=== PATIENT | female | born 1990 | race Hispanic/Latino ===

== ENCOUNTER 2017-07-05 20:02 | Inpatient (IN) | payer OTHER ==
[2017-07-05 20:53] VITALS: BP 101/66; TEMP 98.7; BMI 23.6
[2017-07-05] MEDS ORDERED: Lidocaine 1% (PF) 30 ML VIAL SC PRN (21:01)
[2017-07-05] MEDS ORDERED: Ondansetron HCl/PF 4 MG/2 ML Vial IVP PRN (21:01)
[2017-07-05] MEDS ORDERED: Lactated Ringer's 1,000 ML IV SCH ×2 (21:15)
[2017-07-05] MEDS ORDERED: Zolpidem Tartrate 5 MG TAB PO PRN (22:33)
[2017-07-05] MEDS: Misoprostol 100 MCG TAB VAG SCH (22:35)
[2017-07-06] MEDS: Misoprostol 100 MCG TAB VAG SCH (02:40)
--- NOTE | 2017-07-06 08:14 | DIS ---
DELIVERY AND DISCHARGE NOTE ADMITTING DIAGNOSIS: Intrauterine demise at 15 weeks. DISCHARGE DIAGNOSIS: Intrauterine demise at 15 weeks. PROCEDURE: Induction of labor with delivery of 15-week fetus. CONSULTATIONS: None. HOSPITAL COURSE: The patient is a 27-year-old female who presented to Labor and Delivery last night with a confirmed IUFD at 15 weeks and was requesting medical management for delivery. She was admitt ed and placed on Cytotec 400 mcg q.4h. vaginally until delivery which occurred at 0335 on 07/06/2017. The fetus appeared male, was 15 weeks and 6 days and weighed 9 grams. The placenta delivered spont aneously over the next hour. Upon my evaluation, the patient reports that she is feeling better, cabrera t her bleeding has slowed down and is without subjective fever. At the completion of the procedure, the patient was stable and in her own room. PHYSICAL EXAMINATION: VITAL SIGNS: This morning; blood pressure 102/55, heart rate of 74, respiratory rate of 18. GENERAL: She appears to be in no acute distress. She is alert and oriented, cooperative and pleasan t to interact with. HEENT: Head is normocephalic, atraumatic. ABDOMEN: Soft. Blood type is A positive with a negative antibody screen, hemoglobin prior to delivery was 13.3, wayne tocrit 38.3, platelets of 239,000. No repeat labs were drawn. Her beta quant was 1150. DISCHARGE INSTRUCTIONS: The patient is being discharged to home. She has desires to take the fetus home for home burial which to my understanding is not a problem. We will confirm this with hospital administration. The patient is being discharged with [id number] ibuprofen to be taken as neede d and has instructions to follow up with her primary OB or doctor of choice in the next 2 weeks.
== END 2017-07-06 08:40 | disposition home or self-care (01) | DRG 770 ==
LOC: L&D 20:02
PROVIDERS: ADMIT Obstetrics & Gynecology; ATTEND Obstetrics & Gynecology
PROC: 10D17Z9 Manual Extraction of Products of Conception, Retained, Via Natural or Artificial Opening (ICD-10-PCS; principal; 2017-07-05)
PROC: 3E0P7VZ Introduction of Hormone into Female Reproductive, Via Natural or Artificial Opening (ICD-10-PCS; 2017-07-05)
DX: O02.1 Missed abortion (principal); Z3A.15 15 weeks gestation of pregnancy
CPT/HCPCS: 36415; 84702; 85025; 86850; 86900; 86901; 99284; J0595

== ENCOUNTER 2018-01-24 06:56 | Inpatient (IN) | payer OTHER ==
[2018-01-24 07:27] VITALS: BMI 26.8
[2018-01-24] MEDS ORDERED: Meperidine HCl/PF 25 MG/ML VIAL IM/IV PRN (08:34)
[2018-01-24] MEDS ORDERED: Promethazine HCl 25 MG/ML VIAL IM PRN (08:34)
[2018-01-24] MEDS ORDERED: Acetaminophen 500 MG TAB PO PRN (08:34)
[2018-01-24] MEDS ORDERED: Ondansetron HCl/PF 4 MG/2 ML Vial IVP PRN (08:34)
[2018-01-24] MEDS ORDERED: Butorphanol Tartrate 1 MG/ML VIAL SLOW IVP PRN (08:34)
--- NOTE | 2018-01-24 09:12 | ULT ---
OBSTETRIC SONOGRAM LIMITED: History demise. FINDINGS: Sonographic evaluation of the uterus shows fetus within the endometrial cavity. No heart tones are detected. IMPRESSION: Intrauterine demise. POS: YANIQUE
[2018-01-24] MEDS: Lactated Ringer's 1,000 ML IV SCH ×6 (09:30→19:25)
[2018-01-24] MEDS: Misoprostol 100 MCG TAB VAG SCH ×4 (10:15→22:54)
[2018-01-24 10:18] LABS: Hemoglobin 14.5 g/dL (12.0-16.0); Mean Corpuscular HGB CONC 33.5 g/dL (32.0-36.0); Mean Corpuscular Hemoglobin 29.8 pg (27.0-31.0); Mean Corpuscular Volume 88.8 fl (81.0-99.0); Mean Platelet Volume 8.5 fL (7.4-10.4); Platelet Count 219 thou/uL (130-400); RBC Distribution Width 12.1 % (11.5-14.5); Red Blood Cell (RBC) Count 4.86 mill/uL (4.20-5.40); White Blood Cell (WBC) Count 7.9 thou/uL (4.8-10.8)
[2018-01-24 10:56] LABS: Syphilis Antibody Nonreactive (Nonreactive); Syphilis Antibody Index 0.04 S/CO (<1.00 Non-Reactive)
[2018-01-24 10:57] LABS: HBSAg Index 0.25 S/CO (0-0.99); Hep B Surf Ag Non-Reactive S/CO (NonReactive)
[2018-01-24 12:56] VITALS: TEMP 98.7
[2018-01-24 18:17] LABS: Hemoglobin 11.4 g/dL (12.0-16.0); Mean Corpuscular HGB CONC 33.4 g/dL (32.0-36.0); Mean Corpuscular Hemoglobin 30.1 pg (27.0-31.0); Mean Corpuscular Volume 90.1 fl (81.0-99.0); Mean Platelet Volume 8.1 fL (7.4-10.4); Platelet Count 202 thou/uL (130-400); RBC Distribution Width 11.8 % (11.5-14.5); Red Blood Cell (RBC) Count 3.77 mill/uL (4.20-5.40); White Blood Cell (WBC) Count 11.2 thou/uL (4.8-10.8)
[2018-01-24 18:22] LABS: Prothrombin Time 13.1 SEC (12.0-14.7)
[2018-01-24 18:36] LABS: Glucose 119 mg/dL (70-105)
[2018-01-24 18:51] VITALS: BP 106/62
--- NOTE | 2018-01-24 21:13 | PRG ---
DATE OF SERVICE: 01/24/2018 PRIMARY OB: Dr. Harper Infante. I was called to the room with a code green and found the patient collapsed on the floor with nursing staff present. The patient was physically lifted from the floor and transferred to a wheelchair and taken to her bed where she was transferred once again. The patient during this time was somewhat cook fast food perative, but was unable to lift herself from the floor on her own and was unresponsive to name. Of note, patient had 300 mL of blood clot on the toilet and had 25 mL of blood on the floor. There seem ed to be continued bleeding as we transferred her to her bed. Vital signs were attempted to be obtai soledad with the machine, which was unsuccessful. A manual cuff was then requested. The patient was shey sue with her feet elevated by pillows. A second IV was placed. Blood was drawn for an H&H. At that time, she was in her bed, the patient appeared to have good color. She had good conjunctival color, capillary refill. She had a pulse in the 90s by palpation. Patient at this point was still very le thargic and not clearly oriented. A manual cuff blood pressure was finally obtained and found to be in the 100s/60s and again pulse in the 90s, satting 100% on room air. The patient was revived with s melling salts to some degree. Estimated blood loss was calculated from time of admission and found t o be approximately 1000 mL. The patient had delivered a fetus couple hours previously and still wait ing delivery of the placenta. On patient was bolused a liter of normal saline, repeat hemoglobin abraham wed a hemoglobin of 11, platelets of 200, blood sugar of 119. EKG with normal sinus rhythm. By this time, the patient was alert and was cooperative, was complaining of some shortness of breath and cou gh. Lungs were clear. Heart was regular. Patient was satting well. The patient complained of sore throat. On inspection of her throat, the patient had no erythema, no swelling, no foreign body. Re peat vital signs continued to be stable and the patient slowly became more aroused. On vaginal exam, the patient was noted to have placenta visible at the peritoneum. On digital exam, the placenta sti ll was at the cervical os with the aid of two ring forceps. The placenta was gently teased and the r emaining products of conception were removed intact. A Holland swabs were used to remove the remaining b lood in the vaginal vault and the patient appeared to have an intact cervix with very minimal to scan t bleeding. Bedside ultrasound showed what appeared to be an empty uterine cavity with possible smal l amounts of blood. Given the patient's ultrasound findings and physical findings of scant bleeding and cleared delivery of products of conception, the patient appeared to be in a safe stable condition . Dr. Harper Infante was contacted and updated on the patient's condition twice through the series of e vents. Most recently, the patient's vital signs have been blood pressure 91/55, heart rate of 72, sa tting 99% on room air. She is feeling better and is hungry and continues to have scant bleeding olinda ral hours after being called to her room with the code green.
[2018-01-25] MEDS: Misoprostol 100 MCG TAB VAG SCH ×2 (02:02→05:39)
[2018-01-25] MEDS: Lactated Ringer's 1,000 ML IV SCH (03:14)
[2018-01-25 05:20] LABS: Hemoglobin 10.4 g/dL (12.0-16.0); Mean Corpuscular HGB CONC 35.1 g/dL (32.0-36.0); Mean Corpuscular Hemoglobin 31.2 pg (27.0-31.0); Mean Corpuscular Volume 88.9 fl (81.0-99.0); Mean Platelet Volume 8.3 fL (7.4-10.4); Platelet Count 183 thou/uL (130-400); RBC Distribution Width 11.7 % (11.5-14.5); Red Blood Cell (RBC) Count 3.34 mill/uL (4.20-5.40); White Blood Cell (WBC) Count 7.9 thou/uL (4.8-10.8)
--- NOTE | 2018-01-25 09:20 | DIS ---
DISCHARGE DIAGNOSES: 1. in utero at 15 weeks status post induction with vaginal delivery. 2. Syncopal episode. Giovanna is a 28-year-old female G5, P3-0-1-3 at 15 weeks gestation, who had been evaluated in the office for her care with Dr. Sanches. It was noted on her regularly scheduled visit no feta l heart tones were noted and no cardiac activity on ultrasound. Options have been discussed with the patient. She presented electively to Labor and Delivery on 01/24/2018 requesting induction. She wa s evaluated by Dr. Sanches. An ultrasound was ordered to the hospital with an official report of DIU at 15 weeks with measurement of baby approximately 12 weeks. Risks, benefits, and alternatives were di scussed with the patient and the patient was admitted for Cytotec induction. Vaginal Cytotec was shey sue without difficulty and the patient did have some cramping with spontaneous delivery of baby appro ximately 5 hours after placement. The baby appeared fairly normal, was wrapped in a blanket and give n to the parents to hold. The patient had been doing fairly well. It was noted that when we were wa iting passage of placenta, additional Cytotec had been placed rectally. The patient had a near synco pal episode approximately 1 hour after delivery with decreased blood pressure 68/48 which resolved wi th IV fluids. Noted she had minimal to normal amount of vaginal bleeding approximately 150 to 250 mL and clots. She remained stable. Noted she did have a full syncopal episode approximately 4 hours l ater when she was in the bathroom. A code green had been called by the staff. She was placed in her bed, given IV fluids. Again noted, the bleeding was moderate. A speculum exam was performed by Dr. Viveros, noted the placenta was at the internal os, this was removed and again there was minimal ble eding. An ultrasound was performed at the bedside by Dr. Viveros and noted what appeared to be full evacuation of the uterus. The patient remained stable throughout the night. Laboratory studies prior to admission; hemoglobin of 14.5 and the following one on discharge of 10.4. She had minimal bleeding. She and her were coping well. Plans are made for discharge. Dhaliwal pport had been given. The patient to be discharged home in good condition. MEDICATIONS: Tgoo-zoj-llviisv ibuprofen and Tylenol. FOLLOWUP: She will follow up with Dr. Sanches in approximately 2 weeks. Precautions given to the carmen nt.
[2018-01-25 16:00] LABS: Ref Lab Test Ordered CHROMOSOME POC
== END 2018-01-25 09:30 | disposition home or self-care (01) | DRG 779 ==
LOC: L&D/OP 06:56 → L&D 09:52
PROVIDERS: ADMIT Family Medicine; ATTEND Family Medicine
PROC: 10E0XZZ Delivery of Products of Conception, External Approach (ICD-10-PCS; principal; 2018-01-24)
PROC: 3E0P7VZ Introduction of Hormone into Female Reproductive, Via Natural or Artificial Opening (ICD-10-PCS; 2018-01-24)
DX: O02.1 Missed abortion (principal); O72.2 Delayed and secondary postpartum hemorrhage; Z37.1 Single stillbirth; Z3A.15 15 weeks gestation of pregnancy
CPT/HCPCS: 36415; 76815; 82947; 85027; 85610; 86644; 86696; 86698; 86762; 86777; 86780; 86850; 86900; 86901; 87340; 87480; 87510; 87660; 88112; 93005; 93010

== ENCOUNTER 2018-06-07 23:43 | Emergency (ER) | payer OTHER ==
[2018-06-08] MEDS ORDERED: Ondansetron HCl/PF 4 MG/2 ML Vial ONE (00:26)
[2018-06-08 00:29] LABS: Hemoglobin 14.6 g/dL (12.0-16.0); Mean Corpuscular Hemoglobin 28.7 pg (27.0-31.0); Mean Corpuscular Volume 84.6 fL (78.0-98.0); Mean Platelet Volume 8.3 fL (7.4-10.4); Platelet Count 266 thou/uL (130-400); RBC Distribution Width 11.6 % (11.5-14.5); Red Blood Cell (RBC) Count 5.09 mill/uL (4.20-5.40); White Blood Cell (WBC) Count 12.3 thou/uL (4.8-10.8)
[2018-06-08 00:49] LABS: ALT (SGPT) 10 U/L (8-55); AST (SGOT) 15 U/L (5-34); Alkaline Phosphatase 39 U/L (40-150); Anion Gap 15 mmol/L (10-20); BUN (Urea Nitrogen) 6 mg/dL (7.0-18.7); Bilirubin, Total 0.7 mg/dL (0.2-1.2); Calc. Creatinine Clearance 0 mL/min (70-130); Calcium 9.3 mg/dL (7.8-10.44); Carbon Dioxide 19 mmol/L (22-29); Chloride 102 mmol/L (98-107); Estimated GFR-MDRD Greater than 90; Globulin 3.4 g/dL (2.4-3.5); Glucose 101 mg/dL (70-105); Lipase 16 U/L (8-78); Potassium 3.5 mmol/L (3.5-5.1); Protein, Total 7.4 g/dL (6.0-8.3); Sodium 132 mmol/L (136-145)
[2018-06-08 00:51] LABS: Lymphocytes 11 % (21-51); MDiff Complete? YES; Monocytes 3 % (0-10); Neutrophil 86 % (42-75); PLT Morphology Comment Appears Adequate; RBC Morphology Normal
[2018-06-08] MEDS ORDERED: Sucralfate 1 GM/10 ML UDCUP ONE (01:39)
[2018-06-08 03:07] LABS: Bilirubin Negative (Negative); Blood, Urine Negative (Negative); Clarity CLOUDY (Clear); Glucose, Urine (Dipstick) Negative (Negative); Leukocyte Trace (Negative); Nitrite Negative (Negative); Protein, Urine (Dipstick) Negative (Neg-Trace); Urobilinogen 0.2 mg/dL (0.2-1.0)
[2018-06-08 03:09] LABS: Bacteria/HPF None Seen HPF (None Seen); Hyaline Casts/LPF 0-3 HYALINE CAST LPF (0-3 Hyaline); Pathc Cast-AUWi Flag 0.58 (0-2.49); Squamous Epithelial 0-3 HPF (0-3); WBC/HPF 0-3 HPF (0-3)
[2018-06-08 03:10] LABS: Pregnancy Test - Urine (BHCG) POSITIVE (Negative)
[2018-06-08 03:11] LABS: Pregu Control Background? CLEAR/WHITE (CLR/WHITE); Pregu Control Bar Appear? YES (CONTROL BAR)
[2018-06-08 03:21] LABS: Crystals/HPF None Seen HPF (Negative); RBC/HPF 0-3 HPF (0-3)
[2018-06-08] MEDS ORDERED: Metoclopramide HCl 10 MG/2 ML VIAL ONE ×2 (05:40→05:43)
== END 2018-06-07 23:59 | disposition home or self-care (01) ==
LOC: ERS 23:43
DX: O21.9 Vomiting of pregnancy, unspecified (principal); Z3A.10 10 weeks gestation of pregnancy; Z79.82 Long term (current) use of aspirin; Z79.899 Other long term (current) drug therapy
CPT/HCPCS: 36415; 80053; 81003; 81015; 81025; 83690; 84702; 85025; 86900; 86901; 96361; 96374; 96375; J2405; J2765

== ENCOUNTER 2018-11-17 14:53 | Day surgery (SDC) | payer OTHER ==
[2018-11-17 16:09] VITALS: BMI 28.3
--- NOTE | 2018-11-17 17:30 | PDOC.FPROB ---
FMR OB H&P: HPI - History of Present Illness Chief Complaint: Itching Indentification: 28 year old at 33.4 wks History of Present Illness: 28 year old at 33.4 wks with care by home steam bone press tender that presents with diffuse itching. Patient states that the itching starting about a week ago. It was only noticeable on palms and soles of feet at night initially. Over the course of the last two days, the itching has become more diffuse. She denies any associated rashes, except she does note redness on her face which is new as of today. Patient also endorses "dark urine". She denies dysuria. Patient endorses lower abdominal cramping occasionally that has been present for over a month. She states that she thinks they might be gabriela alejandra. Patient denies LoF, vaginal bleeding, or vaginal discharge. Patient reportedly saw Dr. Sanches at beginning of . She was referred to [facility] due to two back to back second trimester losses. Labs were all negative, and patient really wanted to follow with a steam bone press tender, so she changed care to a home steam bone press tender. At this point, patient would feel more comfortable delivering in the hospital and would like to transition care to [facility]. Primary Care Physician: Guest Services Manager in [facility] FMR OB H&P: Current - Care : 6 Para: 3023 Gestational age: 33.4 wks Due date: 01/01/2019 FMR OB H&P: History - Past Medical History PMH: Denies - OB History OB History: IUFD 15 wks x2; no abnormal coagulation disorders per patient - Social History Social History: Denies alcohol, tobacco, or drug use FMR OB H&P: Medications - Current Home Medications: Medication Instructions Recorded Confirmed Type Vit 108/Iron/Folic AC 1 tablet PO DAILY 07/05/17 01/24/18 History [ One Tablet] Allergies/Adverse Reactions: Allergies Allergy/AdvReac Type Severity Reaction Status Date / Time milk Allergy Verified 01/24/18 07:19 No Known Drug Allergies Allergy Verified 07/05/17 20:46 wheat Allergy Verified 01/24/18 07:19 FMR OB H&P: ROS - Review of Systems General: denies: fever/chills, weight/appetite/sleep changes Eyes: denies: vision changes, scotomas ENT: reports: nasal congestion, rhinorrhea. denies: sore throat Cardiovascular: denies: chest pain, palpitation, edema Respiratory: denies: cough, congestion, shortness of breath Gastrointestinal: reports: nausea, vomiting. denies: abdominal pain, diarrhea Genitourinary (Female): reports: polyuria, contractions (gabriela alejandra). denies : dysuria, vaginal discharge, vaginal pain, vaginal bleeding, vaginal pressure Musculoskeletal: denies: pain, stiffness Neurologic: denies: numbness, syncope, seizures Integumentary: reports: itching. denies: rash, lesions Hematologic/Lymphatic: denies: prolonged or excessive bleeding Psychological: denies: depression, anxiety FMR OB H&P: Vital Signs - Maternal Vital signs: BP WNL Pulse WNL Afebrile - Heart Tones Baseline: 140 Variability: moderate Acceleration: present Deceleration: absent Category: category 1 [place] contractions every: None FMR OB H&P: Physical Exam - Physical Exam General: NAD, awake, alert and oriented HEENT: MMM, grossly normal vision, grossly normal hearing Heart: RRR, no murmurs/rubs/gallops General: CTAB, no respiratory distress Abdomen: soft, gravid, non-tender, other (No CVA tenderness) Musculoskeletal: pulses present, FROM in all four extremities Neurological: no tremor, no focal deficit Skin: no rash, capillary refill <2 seconds Lymphatic: no unusual bruising or bleeding, no purpura Psychiatric: intact recent and remote memory, normal mood and affect FMR OB H&P: A/P - Problem List (1) Intrauterine Status: Acute Code(s): Z34.90 - ENCNTR FOR SUPRVSN OF NORMAL , UNSP, UNSP TRIMESTER (2) Itching Status: Acute Code(s): L29.9 - PRURITUS, UNSPECIFIED (3) IUFD at less than 20 weeks of gestation Status: Acute Code(s): O02.1 - MISSED Disposition: 28 year old at 33.4 wks presents with itching 1. sIUP, - 33.4 wks - Has been receiving care by home steam bone press tender, desires to transition care to [facility] - Patient with history of SAB x2 at 15 wks; has been on ASA during this , per patient workup for coagulation disorders negative - 2. Itching possibly secondary to cholestasis - Started on palms and soles, concern for cholestasis - Need to obtain fasting bile acids; patient advised to return in AM for bile acids and CMP, script provided - Patient given script for ursodiol ppx for itching - Patient will need close follow up; she is going to try to establish care with [facility] on Sunday 3. Hx 2 prior second trimester losses - On ASA - Labs negative per patient regarding coagulation disorders - Patient reportedly taking progesterone PV until last week prescribed by Dr. Sanches at IOB visit, patient has not followed with Dr. Sanches Dispo: Plan to send patient home with script for fasting bile acids and CMP to rule out cholestasis of as cause of itching. Patient counseled that there are other things that can cause itching to include changes in soap, lotion , dry skin, etc. Patient reportedly has been taking benadryl since onset of because she feels that her last two losses were "allergic reactions". Advised patient that if bile acids were normal, she may need to d/c benadryl as it may be drying out her skin. Discussion: Date/Time: 11/17/18 3010 This H&P was discussed with Dr. Viveros who agrees with the above documentation and plan. Signature: Jennifer Ibanez, PGY-2 Addendum - Attending - Attending Attestation Date/Time: 11/18/18 0446 I personally evaluated the patient and discussed the management with Dr. Ibanez I agree with the History, Examination, Assessment and Plan documented above with any addition or exceptions noted below.
== END 2018-11-17 16:36 | disposition home or self-care (01) ==
LOC: L&D/OP 14:53
PROVIDERS: ATTEND Family Medicine
DX: O26.893 Other specified pregnancy related conditions, third trimester (principal); L29.9 Pruritus, unspecified; Z3A.33 33 weeks gestation of pregnancy; Z87.59 Personal history of other complications of pregnancy, childbirth and the puerperium; Z91.011 Allergy to milk products; Z91.018 Allergy to other foods
CPT/HCPCS: 99282

== ENCOUNTER 2018-11-25 11:22 | Observation (INO) | payer OTHER ==
[2018-11-25 12:04] VITALS: BMI 29.2
[2018-11-25] MEDS ORDERED: Betamet Acet/Betamet Na Ph 30 MG/5 ML VIAL ONE (13:36)
[2018-11-25] MEDS ORDERED: Ondansetron PF 4 MG/2 ML Vial IVP PRN (13:43)
[2018-11-25] MEDS: Betamet Acet/Betamet Na Ph 30 MG/5 ML VIAL IM SCH (13:44)
[2018-11-25] MEDS: Lactated Ringer's 1,000 ML IV SCH ×2 (13:51→19:00)
[2018-11-25 14:32] LABS: Mean Corpuscular HGB CONC 33.5 g/dL (32.0-36.0); Mean Corpuscular Hemoglobin 29.2 pg (27.0-31.0); Mean Corpuscular Volume 87.4 fL (78.0-98.0); Mean Platelet Volume 8.9 fL (7.4-10.4); Platelet Count 264 thou/uL (130-400); RBC Distribution Width 11.9 % (11.5-14.5); White Blood Cell (WBC) Count 9.6 thou/uL (4.8-10.8)
[2018-11-25 15:00] LABS: ALT (SGPT) 13 U/L (8-55); AST (SGOT) 18 U/L (5-34); Albumin 3.6 g/dL (3.5-5.0); Alkaline Phosphatase 113 U/L (40-150); Anion Gap 14 mmol/L (10-20); BUN (Urea Nitrogen) 9 mg/dL (7.0-18.7); Bilirubin, Total 0.2 mg/dL (0.2-1.2); Calc. Creatinine Clearance 141 mL/min (70-130); Calcium 9.2 mg/dL (7.8-10.44); Carbon Dioxide 22 mmol/L (22-29); Chloride 104 mmol/L (98-107); Estimated GFR-MDRD Greater than 90; Globulin 2.8 g/dL (2.4-3.5); Glucose 65 mg/dL (70-105); Potassium 4.3 mmol/L (3.5-5.1); Protein, Total 6.4 g/dL (6.0-8.3); Sodium 136 mmol/L (136-145)
--- NOTE | 2018-11-25 22:29 | HP ---
PRIMARY OB DOCTOR: Radha Concetta Pedraza. CHIEF COMPLAINT: Oligohydramnios. HISTORY OF PRESENT ILLNESS: The patient is a 28-year-old G6, P3 female, with an intrauterine at 34 weeks and 5 days, who just recently transferred care from nurse despatching and receiving clerk here in the community to [facility] with Ms. Concetta Pedraza, and today was noted on anatomy ultrasound scan to have an CURTIS of 5. The patient reports that she has not had any complications with this . She has a history of two 2nd trimester losses that resulted in a TORCH titer workup, which resulted in negative findings. The patient was seen by Maternal Medicine early this , and to her understanding, reported that she did not have any specific findings of concern, though they would recommend routine monthly ultrasounds. The patient after discussing with them, their recommendations chose to continue care with the despatching and receiving clerk. The patient denies any other further medical history. She does report that she has been in contact in the last few weeks with a lot of sick family that she is described mainly as colds. She denies any personal history of fever or rashes. The patient does report a fairly strict diet at home and has had no weight gain for approximately the last 5-6 weeks and has gained a total of 12 pounds with this . PAST MEDICAL HISTORY: Negative. PAST SURGICAL HISTORY: Otherwise noncontributory. SOCIAL HISTORY: Denies drug, alcohol, or tobacco use. MEDICATIONS: The patient has been taking 500 mg daily of black currant oil, 25 mg of Benadryl daily, and 81 mg of aspirin daily, and Valtrex 500 mg daily taken for prophylaxis given an IgG-IgM positive HSV titer. OBSTETRIC LABORATORY DATA: OB labs: Rubella immune. Hepatitis B surface antigen is nonreactive. RPR is nonreactive. HIV is nonreactive. Blood type is A positive. Antibody screen is negative. REVIEW OF SYSTEMS: The patient denies headache, chest pain, shortness of breath , fever, fall, nausea, vomiting, diarrhea, or constipation. She denies hip problems, knee problems, or muscle weakness. She denies any new rashes. She denies vaginal bleeding or leakage of fluid. She denies urinary urgency or frequency. PHYSICAL EXAMINATION: VITAL SIGNS: Blood pressure 107/63, heart rate of 98, respiratory rate 18, saturating 98% on room air, and temperature 98.4. GENERAL: She appears to be in no acute distress. She is alert, oriented, cooperative, and pleasant to interact with. HEAD: Normocephalic and atraumatic. LUNGS: Clear to auscultation bilaterally. HEART: Regular rate and rhythm. ABDOMEN: Gravid, soft, and nontender. EXTREMITIES: Nontender and nonedematous. heart tracing demonstrates a baseline in the 130s to 140s with moderate long-term variability, positive 15/15 accelerations, no decelerations. She has some irritability on the tocometer, but no consistent contraction pattern. LABORATORY DATA: White count 9.6, hemoglobin 12.0, hematocrit 35.8, and platelets 264,000. Creatinine 0.64, glucose 65, AST 18, ALT 13, and calcium 9.2. Blood type is A positive. Negative antibody screen. Ultrasound just performed prior to arrival; estimated weight at 2279 g, which is at the 22nd percentile. CURTIS is 5.1 with 2 pockets greater than 2 cm. BPP performed and reported of 6/8, if you do not use the 2 x 2 pocket rule. Placenta grade is 2nd grade. Dr. Boogie reports that the placenta looked abnormally thickened. Dopplers were performed also and found to be normal. ASSESSMENT AND PLAN: The patient is a 28-year-old female with recent transfer of care to [facility] and new findings of oligohydramnios. There is no evidence at this time of IUGR or distress and her fetus has a reactive NST in category 1 tracing and a 6/8 BPP, which of her 2 cm pockets are at least 2 x 2 cm, could qualify for 8/8 BPP. The patient does have a history of two 2nd trimester losses. Plan at this time is to admit to the hospital for steroid administration and long-term prolonged monitoring. IV hydration. Of note, the patient has had no weight gain in the last 6 weeks, which sounds like it may be more diet related as the patient and admit that she has a very strict diet that she adheres to. With IV hydration, we will be repeating her BPP tomorrow once the patient has received two doses of steroids. If everything else looks fine, the patient is likely being discharged home with twice weekly NSTs and with plans for delivery between 36 and 37 during the 36th or started at 37th week gestation unless otherwise indicated sooner. Job ID: [id number] MTDD
[2018-11-25 23:20] LABS: Amnisure Test No Membranes Rupture (No Rupture)
[2018-11-25 23:21] LABS: Amnisure Internal Control QC ACCEPTABLE (ACCEPTABLE)
[2018-11-26] MEDS: Lactated Ringer's 1,000 ML IV SCH ×2 (03:08→11:21)
[2018-11-26] MEDS: Betamet Acet/Betamet Na Ph 30 MG/5 ML VIAL IM SCH (13:42)
[2018-11-26] MEDS ORDERED: Acetaminophen 500 MG TAB PO SCH (14:00)
--- NOTE | 2018-11-26 14:25 | ULT ---
ULTRASOUND BIOPHYSICAL PROFILE: DATE: 11/26/18 HISTORY: 28-year-old female with oligohydramnios. FINDINGS: breathin tone: 2 movement: 2 Amniotic fluid volume: 2 heart rate: 165 bpm lie: Vertex CURTIS: 5.5 cm IMPRESSION: 1. Normal biophysical profile score of 8/8, excluding the non-stress test. 2. Oligohydramnios. todd [] POS: C
[2018-11-26 16:36] VITALS: BP 90/54; TEMP 97.9
--- NOTE | 2018-11-27 04:32 | DIS ---
DATE OF ADMISSION: 11/25/2018 DATE OF DISCHARGE: 11/26/2018 ADMISSION DIAGNOSES: 1. 34 weeks gestation. 2. Oligohydramnios. 3. Decreased movement. DISCHARGE DIAGNOSES: 1. 34 weeks gestation. 2. Oligohydramnios. 3. Decreased movement. SUMMARY OF HOSPITAL COURSE: Giovanna Keith is a 28-year-old, G6, P3-0-2-3 at 34 weeks and 5 days who was admitted to the hospital following a routine ultrasound at the office which revealed oligohydramnios and placentomegaly. While at the hospital, baby had reactive NST. She received IV hydration and 2 doses of Celestone for lung development. On November 26, 2018, the biophysical profile was repeated with a score of 8/8 and CURTIS was 5.5 cm. Due to the thickened placenta originally seen at the [facility] ultrasound, a TORCH panel was ordered on the patient. During her stay, the patient's vitals remained normal. Blood pressure was 113/80. Temperature was 98.4. Pulse 88. Respirations were 18. AmniSure was collected and was negative. The patient was discharged home today following a reassuring BPP and reactive NST. She will follow up in the [facility] in 2 days for a repeat biophysical profile. Due to uncomplicated oligohydramnios, the indication for delivery is at 36 weeks, which we have planned for an induction and the patient is scheduled for next Sunday. Job ID: [id number]
[2018-11-28 23:08] LABS: CMV IgG AB Less than 0.60 U/mL (0.00-0.59); HSV-2 IgG Type Specific Less than 0.91 index (0.00-0.90); Rubella IgM ABS Less than 20.0 AU/mL (0.0-19.9); Rubella Virus IgG 1.85 index (Immune >0.99); Toxoplasma IgG AB Less than 3.0 IU/mL (0.0-7.1); Toxoplasma IgM ABS Less than 3.0 AU/mL (0.0-7.9)
== END 2018-11-26 16:50 | disposition home health service (06) ==
LOC: L&D/OP 11:22 → L&D 16:13
PROVIDERS: ADMIT Obstetrics & Gynecology; ATTEND Obstetrics & Gynecology
DX: O41.03X0 Oligohydramnios, third trimester, not applicable or unspecified (principal); O36.8130 Decreased fetal movements, third trimester, not applicable or unspecified; Z3A.34 34 weeks gestation of pregnancy; Z87.59 Personal history of other complications of pregnancy, childbirth and the puerperium; Z91.011 Allergy to milk products; Z91.018 Allergy to other foods; Z79.82 Long term (current) use of aspirin; Z79.899 Other long term (current) drug therapy
CPT/HCPCS: 76819; 80053; 84112; 85027; 86644; 86696; 86698; 86762; 86777; 86850; 86900; 86901; 96360; 96361; 96372; 99285; G0378; J0702

== ENCOUNTER 2018-12-19 07:49 | Inpatient (IN) | payer OTHER ==
[2018-12-19 08:29] VITALS: BMI 30.2
[2018-12-19] MEDS: Lactated Ringer's 1,000 ML IV SCH ×2 (08:41→18:49)
[2018-12-19] MEDS ORDERED: Ibuprofen 800 MG TAB PO PRN (10:00)
[2018-12-19] MEDS ORDERED: Promethazine HCl 25 MG/ML VIAL IM PRN (10:02)
[2018-12-19] MEDS ORDERED: Lidocaine 1% (PF) 30 ML VIAL SC PRN (10:02)
[2018-12-19] MEDS ORDERED: Methylergonovine 0.2 MG/ML VIAL IM PRN (10:02)
[2018-12-19] MEDS ORDERED: Ondansetron PF 4 MG/2 ML Vial IVP PRN (10:02)
[2018-12-19] MEDS ORDERED: HYDROcodone/Acetaminophen 5/325 mg Tablet PO PRN ×2 (10:02)
[2018-12-19] MEDS ORDERED: NS / Oxytocin 40 units/1000ml 1,000 ML IV PRN (10:02)
--- NOTE | 2018-12-19 10:05 | PDOC.LDHP ---
Labor and Delivery H&P Chief complaint: scheduled induction (for oligohydramnios) HPI: Patient arrive to hospital for IOL. She does not think she is dilated at all because she has not felt anything. None of the dilapan have fellout of her cervix. the baby has been moving, but less Current gestational age (weeks): 38 Due date: 01/01/19 Dating criteria: last menstrual period Grav: 6 Para: 3 OB History Details: G1 - 2011 6.12 G2 2014 6.14 G3 2016 7.2 G4 15 week 2nd trimester G5 17 week 2nd trimester . G6 current. Current complications: oligohydramnios, other (Placental megaly) Abnormal US findings: No Current medications: pre- vitamins, other (Aspirin Benadryl 25 mg Valacyclovir 500mg PO QD) Previous surgical history: none Allergies/Adverse Reactions: Allergies Allergy/AdvReac Type Severity Reaction Status Date / Time milk Allergy Verified 01/24/18 07:19 No Known Drug Allergies Allergy Verified 07/05/17 20:46 wheat Allergy Verified 01/24/18 07:19 Social history: none - Physical Exam Vital signs reviewed and normal: yes General: NAD Heart: RRR Lungs: nonlabored breathing Abdomen: gravid Extremeties: trace edema FHT: category 1 [place] contractions every: none - Vaginal Exam cm dilated: 3 Effacement: 50% Station: -3 - OB Labs Blood type: A RH: positive Antibody Screen: negative HIV: negative RPR: negative HEPSAg: negative Rubella: non-immune - Assessment L&D Assessment: medically indicated induction (oligohydramnios) - Plan Plan: admit to L&D, labor augmentation if indicated -: Dilapan removed intact x 5. Discussed pitocin vs. AROM and due to the -3 station, AROM coul drisk cord prolapse. Start pitocin until good decent and the AROM later. Anticipate
[2018-12-19] MEDS ORDERED: NS w/ Oxytocin 10 units 500 ML IV SCH (10:15)
[2018-12-19] MEDS ORDERED: NS w/ Oxytocin 10 units 500 ML ONE (10:16)
[2018-12-19 10:36] LABS: Hemoglobin 11.4 g/dL (12.0-16.0); Mean Corpuscular HGB CONC 31.6 g/dL (32.0-36.0); Mean Corpuscular Volume 85.4 fL (78.0-98.0); Mean Platelet Volume 9.3 fL (7.4-10.4); Platelet Count 237 thou/uL (130-400); RBC Distribution Width 12.6 % (11.5-14.5); Red Blood Cell (RBC) Count 4.22 mill/uL (4.20-5.40); White Blood Cell (WBC) Count 9.5 thou/uL (4.8-10.8)
[2018-12-19] MEDS: Dextrose 5%-Lactated Ringers 1,000 ML IV SCH (11:21)
[2018-12-19 11:22] LABS: HBSAg Index 0.32 S/CO (0-0.99); Hep B Surf Ag Non-Reactive S/CO (NonReactive); Syphilis Antibody Nonreactive (Nonreactive); Syphilis Antibody Index 0.03 S/CO (<1.00 Non-Reactive)
--- NOTE | 2018-12-19 13:06 | PDOC.LDPN ---
Labor & Delivery Progress Note - Subjective Subjective: comfortable - Objective Vital signs reviewed and normal: yes General: NAD, resting Dilation: 4 Effacement: 50% Station: -2 FHT: category 1 - Assessment (1) Oligohydramnios Code(s): O41.00X0 - OLIGOHYDRAMNIOS, UNSP TRIMESTER, NOT APPLICABLE OR UNSP Current Visit: Yes Status: Acute (2) Oligohydramnios Code(s): O41.00X0 - OLIGOHYDRAMNIOS, UNSP TRIMESTER, NOT APPLICABLE OR UNSP Current Visit: No Status: Acute Plan: pitocin for augmentation -: AROM when head descends into pelvis.
[2018-12-19] MEDS ORDERED: Lidocaine 1% (PF) 30 ML VIAL ONE (14:01)
[2018-12-19] MEDS ORDERED: NS / Oxytocin 40 units/1000ml 1,000 ML ONE (14:01)
--- NOTE | 2018-12-19 17:01 | PDOC.LDPN ---
Labor & Delivery Progress Note - Subjective Subjective: comfortable - Objective Vital signs reviewed and normal: yes General: resting Uterine fundus: non tender Dilation: 3 Effacement: 50% Station: -2 FHT: category 1 AROM: clear fluid - Assessment (1) Oligohydramnios Code(s): O41.00X0 - OLIGOHYDRAMNIOS, UNSP TRIMESTER, NOT APPLICABLE OR UNSP Current Visit: Yes Status: Acute (2) Oligohydramnios Code(s): O41.00X0 - OLIGOHYDRAMNIOS, UNSP TRIMESTER, NOT APPLICABLE OR UNSP Current Visit: No Status: Acute -: AROM. Stopped pitocin for pit break 1-2 hours. Restart pitocin after resting Encouraged pt to walk halls
[2018-12-19] MEDS ORDERED: Fentanyl 4 mcg/Bup 0.1% Cadd 100 ML ONE (23:57)
[2018-12-20] MEDS: Dextrose 5%-Lactated Ringers 1,000 ML IV SCH (00:42)
[2018-12-20] MEDS ORDERED: Lactated Ringer's 500 ML IV PRN (00:46)
[2018-12-20] MEDS ORDERED: diphenhydrAMINE 50 MG/ML VIAL IVP PRN (00:46)
[2018-12-20] MEDS ORDERED: ePHEDrine/0.9% NaCl/PF SYRINGE 50 mg/10 ml SLOW IVP PRN (00:46)
[2018-12-20] MEDS ORDERED: Promethazine HCl 25 MG/ML VIAL IM PRN (00:46)
[2018-12-20] MEDS ORDERED: Acetaminophen 325 MG TAB PO PRN (00:46)
[2018-12-20] MEDS ORDERED: Eucerin (Mineral Oil/Petrolatum,White) 30 gm Jar TOP PRN (00:46)
[2018-12-20] MEDS ORDERED: Ondansetron PF 4 MG/2 ML Vial IVP PRN (00:46)
[2018-12-20] MEDS ORDERED: Naloxone HCl 0.4 mg/ml Vial IVP PRN ×2 (00:46)
[2018-12-20] MEDS ORDERED: Communication Order-Pharmacy FS SCH (01:00)
[2018-12-20] MEDS ORDERED: Fentanyl 4 mcg/Bupivacaine 0.1% Cassette 100 ML EPIDURAL SCH (01:00)
--- NOTE | 2018-12-20 03:20 | PDOC.OPDEL ---
OB Operative/Delivery Note Delivery Dr/Surgeon: Tobias Pedraza Pre-Delivery Diagnosis: medically indicated induction Procedure/Post Delivery Dx: spontaneous vaginal delivery Weeks gestation: 38 Anesthesia: epidural - Findings A Sex: female - 1 min: 9 - 5 min: 9 - Additional Findings/Plan Placenta delivered: spontaneous Repaired Obstetrical Laceration: none Estimated blood loss: 200mL EBL Post delivery plan: routine recovery
[2018-12-20] MEDS ORDERED: NS / Oxytocin 40 units/1000ml 1,000 ML ONE (03:55)
[2018-12-20] MEDS ORDERED: Misoprostol 200 MCG TAB VAG PRN (07:51)
[2018-12-20] MEDS ORDERED: Measles/Mumps/Rubella 10 MCG/0.5 ML VIAL SC ONE (07:51)
[2018-12-20] MEDS ORDERED: Benzocaine-Menthol 82.5 ML CAN TOP PRN (07:51)
[2018-12-20] MEDS ORDERED: Milk Of Magnesia 30 ML UDCUP PO PRN (07:51)
[2018-12-20] MEDS ORDERED: Bisacodyl 10 MG SUPP PR PRN (07:51)
[2018-12-20] MEDS ORDERED: Adacel (T-DAP) 0.5 ML SYRINGE IM ONE (07:51)
[2018-12-20] MEDS ORDERED: NS / Oxytocin 40 units/1000ml 1,000 ML IV SCH (07:51)
[2018-12-20] MEDS ORDERED: Methylergonovine 0.2 MG/ML VIAL IM PRN (07:51)
[2018-12-20] MEDS ORDERED: HYDROcodone/Acetaminophen 5/325 mg Tablet PO PRN ×2 (07:51)
[2018-12-20] MEDS ORDERED: diphenhydrAMINE 25 MG CAP PO PRN (07:51)
[2018-12-20] MEDS: Ibuprofen 800 MG TAB PO SCH ×3 (14:53→17:38)
[2018-12-20] MEDS: Ferrous Sulfate 325 MG TAB PO SCH ×2 (15:33→20:28)
[2018-12-20] MEDS: Prenatal Vitamin 1 TAB PO SCH (15:33)
[2018-12-20] MEDS: Docusate Calcium (SURFAK) 240 MG CAP PO SCH ×2 (15:33→23:14)
[2018-12-20] MEDS: Lactated Ringer's 1,000 ML IV SCH (15:34)
[2018-12-21] MEDS: Ibuprofen 800 MG TAB PO SCH ×2 (02:29→10:37)
--- NOTE | 2018-12-21 07:26 | PDOC.PP ---
Post Progress Note Post Day #: 1 Subjective: patient is doing well. She did not get much sleep because she was worried about the baby eating. She denies heavy bleeding, feeling dizzy, malaise. Up to urinate and passing gas without problems. PO intake tolerated: yes Flatus: yes Ambulation: yes Vital Signs (12 hours) Temp Pulse Resp BP BP Pulse Ox 12/21/18 04:25 98.4 F 84 16 88/50 L 97 12/21/18 00:10 98.4 F 84 16 90/54 L 94 L Weight Weight 155 lb - Physical Examination General: NAD Cardiovascular: no m/r/g, RRR Respiratory: non-labored breathing Abdominal: lochia (minimal) Extremities: negative homans (B) Skin: no rash Neurological: no gross focal deficits Psychiatric: A&Ox3, normal affect Result Diagrams: 12/19/18 10:26 Additional Labs: Post Labs Blood Type A POSITIVE 12/19/18 10:26 Hep Bs Antigen Non-Reactive S/CO (NonReactive) 12/19/18 10:26 (1) Oligohydramnios Code(s): O41.00X0 - OLIGOHYDRAMNIOS, UNSP TRIMESTER, NOT APPLICABLE OR UNSP Status: Acute (2) Oligohydramnios Code(s): O41.00X0 - OLIGOHYDRAMNIOS, UNSP TRIMESTER, NOT APPLICABLE OR UNSP Status: Acute - Assessment/Plan A: now p4 SP following IOL for oligohydramnios P; discharge home today with a6 week postparutm f/up visit. hold discharge if is not discharged.
[2018-12-21] MEDS: Ferrous Sulfate 325 MG TAB PO SCH (08:53)
[2018-12-21] MEDS: Docusate Calcium (SURFAK) 240 MG CAP PO SCH (08:58)
[2018-12-21] MEDS: Prenatal Vitamin 1 TAB PO SCH (08:58)
[2018-12-21] MEDS ORDERED: Lidocaine 2% MPF 10 ML AMP (For Epidural Use) ONE (11:11)
[2018-12-21 13:14] VITALS: BP 97/55; TEMP 98.3
== END 2018-12-21 15:05 | disposition home or self-care (01) | DRG 806 ==
LOC: L&D 07:49 → 3SW 12-20 14:19
PROVIDERS: ADMIT Student in an Organized Health Care Education/Training Program; ATTEND Student in an Organized Health Care Education/Training Program
PROC: 10E0XZZ Delivery of Products of Conception, External Approach (ICD-10-PCS; principal; 2018-12-20)
PROC: 3E033VJ Introduction of Other Hormone into Peripheral Vein, Percutaneous Approach (ICD-10-PCS; 2018-12-20)
PROC: 10907ZC Drainage of Amniotic Fluid, Therapeutic from Products of Conception, Via Natural or Artificial Opening (ICD-10-PCS; 2018-12-20)
DX: O41.03X0 Oligohydramnios, third trimester, not applicable or unspecified (principal); O98.52 Other viral diseases complicating childbirth; Z37.0 Single live birth; B00.9 Herpesviral infection, unspecified; Z3A.38 38 weeks gestation of pregnancy; Z91.018 Allergy to other foods
CPT/HCPCS: 36415; 51702; 85027; 86780; 86850; 86900; 86901; 87340; J2001; J2590

== ENCOUNTER 2019-05-29 18:18 | Emergency (ER) | payer OTHER ==
--- NOTE | 2019-05-29 19:13 | RAD ---
XR Wrist 3 Rt View STANDARD History: Injury. Pain Comparison: None. Findings: There is mild medial swelling at the wrist. No acute fracture or malalignment. Impression: Medial wrist soft tissue swelling may reflect underlying ligamentous or tendinous injury. No acute osseous abnormality
--- NOTE | 2019-05-29 19:17 | RAD ---
XR Hand Rt 3 View STANDARD History: Pain. Trauma Comparison: None. Findings: Mild soft tissue swelling along the medial wrist. No acute fracture or malalignment. Impression: Medial wrist soft tissue swelling without acute osseous abnormality.
== END 2019-05-29 19:26 | disposition home or self-care (01) ==
LOC: ERS 18:18
DX: S63.501A Unspecified sprain of right wrist, initial encounter (principal); X50.9XXA Other and unspecified overexertion or strenuous movements or postures, initial encounter

== ENCOUNTER 2021-10-13 00:16 | Emergency (ER) | payer OTHER, SELFPAY | END 2021-10-13 01:25 | disposition home or self-care (01) | LOC: ERS 00:16 | DX: J04.0 Acute laryngitis (principal) | CPT/HCPCS: 99281 ==

== ENCOUNTER 2022-08-31 02:22 | Emergency (ER) | payer BC, SELFPAY ==
[2022-08-31 02:46] LABS: #Basophils 0.1 thou/uL (0.0-0.2); #Eosinphils 0.1 thou/uL (0.0-0.7); #Lymphocytes 3.5 thou/uL (1.20-3.40); #Monocytes 0.5 thou/uL (0.11-0.59); #Neutrophils 3.6 thou/uL (1.40-6.50); %Basophils 0.9 % (0.0-1.0); %Eosinophils 1.6 % (0.0-10.0); %Lymphocytes 45.1 % (21.0-51.0); %Monocytes 6.1 % (0.0-10.0); %Neutrophils 46.2 % (42.0-75.0); Mean Corpuscular HGB CONC 34.1 g/dL (32.0-36.0); Mean Corpuscular Hemoglobin 30.2 pg (27.0-31.0); Mean Corpuscular Volume 88.6 fl (78.0-98.0); Mean Platelet Volume 8.3 fL (7.4-10.4); Platelet Count 263 10x3/uL (130-400); RBC Distribution Width 11.6 % (11.5-14.5); Red Blood Cell (RBC) Count 4.65 mill/uL (4.20-5.40); White Blood Cell (WBC) Count 7.8 10x3/uL (4.8-10.8)
[2022-08-31 03:10] LABS: ALT (SGPT) 11 U/L (8-55); AST (SGOT) 14 U/L (5-34); Albumin 4.2 g/dL (3.5-5.0); Alkaline Phosphatase 42 U/L (40-110); Anion Gap 11 mmol/L (10-20); BUN (Urea Nitrogen) 19 mg/dL (7.0-18.7); Bilirubin, Total 0.4 mg/dL (0.2-1.2); Calc. Creatinine Clearance 0 mL/min (70-130); Calcium 9.3 mg/dL (7.8-10.44); Carbon Dioxide 24 mmol/L (22-29); Chloride 105 mmol/L (98-107); Estimated GFR 91; Globulin 3.3 g/dL (2.4-3.5); Glucose 97 mg/dL (70-105); Lipase 23 U/L (8-78); Potassium 4.2 mmol/L (3.5-5.1); Protein, Total 7.5 g/dL (6.0-8.3); Sodium 136 mmol/L (136-145)
[2022-08-31 04:21] LABS: Bilirubin Negative (Negative); Blood, Urine Negative (Negative); Clarity Clear (Clear); Glucose, Urine (Dipstick) Normal (Negative); Ketone, Urine Negative (Negative); Leukocyte Negative Leu/uL (Negative); Nitrite Negative (Negative); Protein, Urine (Dipstick) Negative (Neg-Trace); Specific Gravity, Urine 1.028 (1.002-1.036); Urobilinogen Normal mg/dL (Less than 2)
[2022-08-31 04:22] LABS: Pregnancy Test - Urine (BHCG) Negative (Negative); Pregu Control Background? CLEAR/WHITE (CLR/WHITE); Pregu Control Bar Appear? YES (CONTROL BAR); Specific Gravity 1.028 (1.002-1.036)
[2022-08-31] MEDS ORDERED: Dicyclomine 20 MG TAB ONE (05:36)
== END 2022-08-31 05:48 | disposition home or self-care (01) ==
LOC: ERS 02:22
DX: R10.31 Right lower quadrant pain (principal); N32.89 Other specified disorders of bladder
CPT/HCPCS: 36415; 74177; 80053; 81003; 81025; 83690; 85025

== ENCOUNTER 2023-10-30 05:25 | Emergency (ER) | payer BC | END 2023-10-30 06:21 | disposition home or self-care (01) | LOC: ERS 05:25 | DX: D17.1 Benign lipomatous neoplasm of skin and subcutaneous tissue of trunk (principal) | CPT/HCPCS: 99283 ==